=== PATIENT | male | born 1965 | race Caucasian/White ===

== ENCOUNTER 2019-05-06 09:56 | Emergency (ER) | payer BC ==
[2019-05-06] MEDS ORDERED: Sodium Chloride 0.9% 10 ML Syringe FLUSH PRN (10:14)
--- NOTE | 2019-05-06 10:35 | EDM.PDOC ---
ED HPI GENERAL MEDICAL PROBLEM - General Chief Complaint: Chest Pain Stated Complaint: CHEST PAIN/BOTH ARM AND LEG NUMBNESS Time Seen by Provider: 05/06/19 10:03 Source of Information: Reports: Patient, RN Notes Reviewed History Limitations: Reports: No Limitations - History of Present Illness INITIAL COMMENTS - FREE TEXT/NARRATIVE: Patient is a 53-year-old male who presents to the ED for the evaluation of intermittent chest pain, and bilateral arm and leg numbness/tingling. Patient notes this is been ongoing intermittently for the last week, he does not note anything that really makes this worse, or makes this better. He states that movement does not seem to bother it. Patient notes that there is a slight discomfort in the left midportion of his chest, that feels sharp and stabbing at times, then sometimes it feels as if there is a pressure. He notes that this pain does not radiate, it does not cause any shortness of breath, nausea/ vomiting, lightheadedness or dizziness, he is not had any headache or blurred vision as well, he notes that he does normally wear glasses however it is not worse than normal. Patient notes he has had problems with elevated blood pressures before, but does not take any medications for this. At time of triage his blood pressure was 194/123, and a recheck of this was 183/113. Patient states that his primary care provider is Dr. Hussein Patel. He states he does not doctor very often however. He does note a positive history for smoking cigarettes, 1-1/2 packs for roughly 40 years, and he openly admits to drinking 3-5 beers on a daily basis. Otherwise he denies any other sort of past medical history, he has not had any surgeries. He relates a family history of his father having 2 heart attacks. Middle Chest Pain Score (Numeric/FACES): 4 - Related Data Allergies Allergy/AdvReac Type Severity Reaction Status Date / Time No Known Allergies Allergy Verified 05/06/19 10:06 Home Meds: Home Meds amLODIPine Besylate [Amlodipine Besylate] 10 mg PO DAILY #30 tablet 05/06/19 [Rx ] Past Medical History HEENT History: Reports: Impaired Vision Cardiovascular History: Reports: Hypertension Respiratory History: Reports: Bronchitis, Recurrent Gastrointestinal History: Reports: None Genitourinary History: Reports: None Musculoskeletal History: Reports: None Neurological History: Reports: None Psychiatric History: Reports: None Endocrine/Metabolic History: Reports: None Hematologic History: Reports: None Immunologic History: Reports: None Oncologic (Cancer) History: Reports: None Dermatologic History: Reports: None - Infectious Disease History Infectious Disease History: Reports: None Social & Family History - Tobacco Use Smoking Status *Q: Current Every Day Smoker Years of Tobacco use: 40 Packs/Tins Daily: 1.5 - Caffeine Use Caffeine Use: Reports: Coffee - Recreational Drug Use Recreational Drug Use: No ED ROS GENERAL - Review of Systems Review Of Systems: See Below Constitutional: Denies: Fever, Chills, Diaphoresis Respiratory: Denies: Shortness of Breath, Cough Cardiovascular: Reports: Chest Pain (Left-mid ches discomfort), Blood Pressure Problem (elevated BP readings). Denies: Dyspnea on Exertion, Edema, Lightheadedness, Orthopnea, Palpitations GI/Abdominal: Denies: Abdominal Pain, Constipation, Diarrhea, Nausea, Vomiting : Denies: Dysuria, Frequency, Urgency Musculoskeletal: Denies: Arm Pain Neurological: Reports: Numbness (bilateral arms/legs), Tingling (bilateral arm/ legs) ED EXAM, GENERAL - Physical Exam Exam: See Below Exam Limited By: No Limitations General Appearance: Alert, WD/WN, No Apparent Distress Eye Exam: Bilateral Eye: EOMI, Normal Inspection, PERRL Ears: Normal External Exam Nose: Normal Inspection Throat/Mouth: Normal Inspection, Normal Lips, Normal Teeth, Normal Gums, Normal Oropharynx, Normal Voice, No Airway Compromise Head: Atraumatic, Normocephalic Neck: Normal Inspection Respiratory/Chest: No Respiratory Distress, Lungs Clear, Normal Breath Sounds, No Accessory Muscle Use, Chest Non-Tender Cardiovascular: Normal Peripheral Pulses, Regular Rate, Rhythm, No Edema, No Murmur Peripheral Pulses: 3+: Radial (L), Radial (R) GI/Abdominal: Normal Bowel Sounds, Soft, Non-Tender, No Distention, No Mass Extremities: Normal Inspection, Normal Range of Motion (with normal strength noted), Slow Capillary Refill (slightly slowed cap refill, pt's hands are dusky and colder to touch than rest of body.) Neurological: Alert, Oriented, Normal Cognition, No Motor/Sensory Deficits Psychiatric: Normal Affect, Normal Mood Skin Exam: Warm (with exception of distal extremities), Dry, Intact, No Rash, Cyanosis (Pt has some acryocyanosis) EKG INTERPRETATION EKG Date: 05/06/19 Time: 10:15 Rhythm: NSR Rate (Beats/Min): 81 [place]: Normal P-Wave: Present QRS: Normal ST-T: Normal QT: Normal Comparison: NA - No Prior EKG EKG Interpretation Comments: borderline criteria for LVH, otherwise normal ECG. Reviewed with Dr. Murrell. Course - Vital Signs Last Recorded V/S: Last Vital Signs Temp 97.4 F 05/06/19 10:02 Pulse 86 05/06/19 10:02 Resp 18 05/06/19 10:02 BP 194/123 H 05/06/19 10:02 Pulse Ox 100 05/06/19 10:02 - Orders/Labs/Meds Orders: Active Orders 24 hr Category Date Time Status EKG Documentation Completion [RC] STAT Care 05/06/19 10:08 Active Peripheral IV Care [RC] . DIRECTED Care 05/06/19 10:14 Active Sodium Chloride 0.9% [Saline Flush] Med 05/06/19 10:14 Active 10 ml FLUSH ASDIRECTED PRN Peripheral IV Insertion Adult [OM.PC] Routine Oth 05/06/19 10:14 Ordered Medication Orders Sodium Chloride (Saline Flush) 10 ml FLUSH ASDIRECTED PRN PRN Reason: Keep Vein Open Last Admin: 05/06/19 10:33 Dose: 10 ml Labs: Laboratory Tests 05/06/19 05/06/19 05/06/19 Range/Units 10:23 10:23 10:23 WBC 5.94 (4.23-9.07) K/mm3 RBC 4.78 (4.63-6.08) M/mm3 Hgb 15.2 (13.7-17.5) gm/dl Hct 44.1 (40.1-51.0) % MCV 92.3 H (79.0-92.2) fl MCH 31.8 (25.7-32.2) pg MCHC 34.5 (32.2-35.5) g/dl RDW Std Deviation 41.2 (35.1-43.9) fL Plt Count 347 H (163-337) K/mm3 MPV 9.2 L (9.4-12.3) fl Neutrophils % (Manual) 59 (40-60) % Band Neutrophils % 0 (0-10) % Lymphocytes % (Manual) 29 (20-40) % Atypical Lymphs % 0 % Monocytes % (Manual) 9 (2-10) % Eosinophils % (Manual) 2 (0.8-7.0) % Basophils % (Manual) 1 (0.2-1.2) Platelet Estimate Adequate RBC Morph Comment Normal PT 11.3 (9.7-12.0) SECONDS INR 1.04 APTT 29 (22-31) SECONDS Sodium 139 (136-145) mEq/L Potassium 4.0 (3.5-5.1) mEq/L Chloride 102 (98-107) mEq/L Carbon Dioxide 26 (21-32) mEq/L Anion Gap 15.0 (5-15) BUN 7 (7-18) mg/dL Creatinine 0.8 (0.7-1.3) mg/dL Est Cr Clr Drug Dosing 81.77 mL/min Estimated GFR (MDRD) > 60 (>60) mL/min BUN/Creatinine Ratio 8.8 L (14-18) Glucose 99 (74-106) mg/dL Calcium 8.9 (8.5-10.1) mg/dL Magnesium 2.0 (1.8-2.4) mg/dl Total Bilirubin 0.4 (0.2-1.0) mg/dL AST 19 (15-37) U/L ALT 25 (16-63) U/L Alkaline Phosphatase 87 (46-116) U/L Troponin I < 0.017 (0.00-0.056) ng/mL NT-Pro-B Natriuret Pep (0-125) pg/mL Total Protein 7.8 (6.4-8.2) g/dl Albumin 4.5 (3.4-5.0) g/dl Globulin 3.3 gm/dL Albumin/Globulin Ratio 1.4 (1-2) 05/06/19 Range/Units 10:23 WBC (4.23-9.07) K/mm3 RBC (4.63-6.08) M/mm3 Hgb (13.7-17.5) gm/dl Hct (40.1-51.0) % MCV (79.0-92.2) fl MCH (25.7-32.2) pg MCHC (32.2-35.5) g/dl RDW Std Deviation (35.1-43.9) fL Plt Count (163-337) K/mm3 MPV (9.4-12.3) fl Neutrophils % (Manual) (40-60) % Band Neutrophils % (0-10) % Lymphocytes % (Manual) (20-40) % Atypical Lymphs % % Monocytes % (Manual) (2-10) % Eosinophils % (Manual) (0.8-7.0) % Basophils % (Manual) (0.2-1.2) Platelet Estimate RBC Morph Comment PT (9.7-12.0) SECONDS INR APTT (22-31) SECONDS Sodium (136-145) mEq/L Potassium (3.5-5.1) mEq/L Chloride (98-107) mEq/L Carbon Dioxide (21-32) mEq/L Anion Gap (5-15) BUN (7-18) mg/dL Creatinine (0.7-1.3) mg/dL Est Cr Clr Drug Dosing mL/min Estimated GFR (MDRD) (>60) mL/min BUN/Creatinine Ratio (14-18) Glucose (74-106) mg/dL Calcium (8.5-10.1) mg/dL Magnesium (1.8-2.4) mg/dl Total Bilirubin (0.2-1.0) mg/dL AST (15-37) U/L ALT (16-63) U/L Alkaline Phosphatase (46-116) U/L Troponin I (0.00-0.056) ng/mL NT-Pro-B Natriuret Pep 92 (0-125) pg/mL Total Protein (6.4-8.2) g/dl Albumin (3.4-5.0) g/dl Globulin gm/dL Albumin/Globulin Ratio (1-2) Meds: Medications Generic Name Dose Route Start Last Admin Trade Name Freq PRN Reason Stop Dose Admin Sodium Chloride 10 ml 05/06/19 10:14 05/06/19 10:33 Saline Flush FLUSH 10 ml ASDIRECTED PRN Administration Keep Vein Open Discontinued Medications Generic Name Dose Route Start Last Admin Trade Name Freq PRN Reason Stop Dose Admin Amlodipine Besylate 10 mg 05/06/19 11:32 Norvasc PO 05/06/19 11:33 ONETIME ONE Hydralazine HCl 10 mg 05/06/19 11:32 Apresoline IVPUSH 05/06/19 11:33 ONETIME ONE - Re-Assessments/Exams Free Text/Narrative Re-Assessment/Exam: 05/06/19 10:36 Patient presents to the ED for evaluation of intermittent chest pain with bilateral arm and leg numbness/tingling. Did order and EKG, chest x-ray, CBC, CMP, troponin, magnesium, BNP, coagulation studies for initial evaluation. There is no obvious ischemic change noted on his EKG, this was reviewed by Dr. Murrell and myself. As for the bilateral arm numbness/tingling, it is suspicious for possible peripheral vascular disease d/t history of smoking. 05/06/19 10:39 Chest x-ray demonstrates flattened diaphragms, consistent with emphysematous changes. There are also 2 small bilateral effusions that are blunting the costophrenic angles. Official radiology read is pending. 05/06/19 11:18 Patient's labs are done, and demonstrate no focal abnormalities, troponin is negative at this time. Patient will be discharged home with general recommendations, he will be started on amlodipine 10 mg by mouth daily in the ER today, and given 10 mg hydralazine for management of his diastolic hypertension. Patient verbalizes understanding of the plan. Chest x-ray official read is back, and demonstrates emphysematous change but no other acute processes noted. Departure - Departure Time of Disposition: 11:20 Disposition: Home, Self-Care 01 Condition: Fair Clinical Impression: Atypical chest pain, Elevated BP without diagnosis of hypertension Prescriptions: amLODIPine Besylate [Amlodipine Besylate] 10 mg PO DAILY #30 tablet Instructions: How to Take Your Blood Pressure, Nonspecific Chest Pain, Easy-to- Read Referrals: Hussein Patel Jr, MD [Primary Care Provider] - Forms: ED Department Discharge Additional Instructions: You were evaluated in the ER today regarding your chest discomfort. Your EKG was within normal limits, and demonstrated no acute ischemic change. Your laboratory evaluation also demonstrated no acute abnormalities. Your chest x-ray demonstrated COPD-like changes, and very small effusions at your lung bases, that may cause some mild difficulty/pain with deep breathing, but these are so small that there is no urgent medical management that needs to be addressed with them. Recommend that you try to make some lifestyle changes by quitting smoking, and trying to cut back on alcohol use as well. You were started on amlodipine, 10 mg daily by mouth, this is to control blood pressure, and should provide a small amount of vasodilation, which should increase blood flow to your extremities, I am hopeful that this will resolve some of the bilateral numbness and tingling in your arms and feet as well. Recommend you keep a blood pressure journal over the next few weeks, you were given an outpatient order for a stress test, to further evaluate your heart, you will need to follow-up with your regular care provider after the stress test is done, and for reevaluation. Please return to the ER at any time if your symptoms change or worsen. Sepsis Event Note - Evaluation Sepsis Screening Result: No Definite Risk - Focused Exam Vital Signs: Vital Signs Temp Pulse Resp BP Pulse Ox 05/06/19 10:02 97.4 F 86 18 194/123 H 100 Date Exam was Performed: 05/06/19 Time Exam was Performed: 11:46 - My Orders Last 24 Hours: My Active Orders 05/06/19 10:08 EKG Documentation Completion [RC] STAT 05/06/19 10:14 Peripheral IV Care [RC] . DIRECTED Sodium Chloride 0.9% [Saline Flush] 10 ml FLUSH ASDIRECTED PRN Peripheral IV Insertion Adult [OM.PC] Routine - Assessment/Plan Last 24 Hours: My Active Orders 05/06/19 10:08 EKG Documentation Completion [RC] STAT 05/06/19 10:14 Peripheral IV Care [RC] . DIRECTED Sodium Chloride 0.9% [Saline Flush] 10 ml FLUSH ASDIRECTED PRN Peripheral IV Insertion Adult [OM.PC] Routine
--- NOTE | 2019-05-06 11:29 | CR ---
Chest: Two views of the chest were obtained. Comparison: No prior chest x-ray. Heart size and mediastinum are normal. Lungs are clear but hyperinflated. Bony structures are unremarkable for the patient's age. Impression: 1. Emphysematous change. 2. Nothing acute is seen on two-view chest x-ray. Diagnostic code #2 This report was dictated in [place] Standard Time
[2019-05-06] MEDS ORDERED: amLODIPine 10 MG Tab PO ONE (11:32)
[2019-05-06] MEDS ORDERED: hydrALAZINE 20 MG/ML SDV IVPUSH ONE (11:32)
== END 2019-05-06 12:05 | disposition home or self-care (01) ==
LOC: JD.ED 09:56
DX: R07.89 Other chest pain (principal); I10 Essential (primary) hypertension; F17.210 Nicotine dependence, cigarettes, uncomplicated; Z79.899 Other long term (current) drug therapy
CPT/HCPCS: 36415; 71046; 80053; 83735; 83880; 84484; 85007; 85027; 85610; 85730; 93005; 96374; 99285; A9270; J0360; 93010; 99284

== ENCOUNTER 2024-02-12 11:58 | Emergency (ER) | payer BC ==
[2024-02-12] MEDS ORDERED: Sodium Chloride 0.9% 10 ML Syringe FLUSH PRN (12:28)
[2024-02-12 12:51] LABS: BASOPHILS ABSOLUTE AUTO 0.1 K/mm3 (0.0-0.2); BASOPHILS PERCENT AUTO 0.9 % (0.0-1.0); EOSINOPHILS ABSOLUTE AUTO 0.1 K/mm3 (0.0-0.4); EOSINOPHILS PERCENT AUTO 0.5 % (0.0-6.0); HEMATOCRIT 44.5 % (42.0-52.0); HEMOGLOBIN 15.5 gm/dl (14.0-18.0); IMMATURE GRAN ABSOLUTE AUTO 0.04 K/mm3 (0.00-0.05); IMMATURE GRAN PERCENT AUTO 0.4 % (0.0-0.4); LYMPHOCYTES ABSOLUTE AUTO 1.3 K/mm3 (1.0-4.8); LYMPHOCYTES PERCENT AUTO 12.3 % (24.0-44.0); MEAN CORPUSCULAR HGB CONC 34.8 g/dl (32.0-36.0); MEAN CORPUSCULAR VOLUME 91.9 fl (83.0-99.0); MEAN PLATELET VOLUME 9.5 fl (9.4-12.4); MONOCYTES ABSOLUTE AUTO 1.1 K/mm3 (0.0-0.8); MONOCYTES PERCENT AUTO 10.4 % (0.0-8.0); NEUTROPHILS ABSOLUTE AUTO 8.1 K/mm3 (1.8-7.7); NEUTROPHILS PERCENT AUTO 75.5 % (41.0-71.0); PLATELET COUNT,PLT 347 K/mm3 (150-400); RED BLOOD CELL COUNT 4.84 M/mm3 (4.52-5.90); WHITE BLOOD CELL COUNT,WBC 10.72 K/mm3 (3.9-11.3)
[2024-02-12 12:58] LABS: INR 1.02; PROTHROMBIN TIME 10.8 SECONDS (9.7-12.0)
[2024-02-12 13:05] LABS: A/G RATIO 1.2 (1-2); ALBUMIN 4.2 g/dl (3.4-5.0); ANION GAP 15.6 (5-15); BILIRUBIN TOTAL 0.8 mg/dL (0.2-1.0); BUN/CREATININE RATIO 8.6 (14-18); CALCIUM 9.1 mg/dL (8.5-10.1); CREATININE 0.7 mg/dL (0.7-1.3); EST CRCL DRUG DOSING (CG) 85.23 mL/min; POTASSIUM,K 3.6 mEq/L (3.5-5.1); PROTEIN TOTAL,TP 7.7 g/dl (6.4-8.2)
== END 2024-02-12 16:00 | disposition home or self-care (01) ==
LOC: JD.ED 11:58
DX: R07.89 Other chest pain (principal); I10 Essential (primary) hypertension; F17.210 Nicotine dependence, cigarettes, uncomplicated
CPT/HCPCS: 36415; 71045; 71045-26; 80053; 84484; 85025; 85610; 93005; 99285